=== PATIENT | female | born 1940 | race Caucasian/White ===

== ENCOUNTER 2017-05-10 00:20 | Emergency (ER) | payer MEDICARE, OTHER ==
[2017-05-10] MEDS ORDERED: Diltiazem 25 MG/5 ML SDV IVPUSH ONE (00:32)
[2017-05-10] MEDS ORDERED: Diltiazem 100 MG AdvVial ONE (00:45)
[2017-05-10] MEDS ORDERED: Diltiazem 100 MG in Sodium Chloride 0.9% 100 ML IV SCH (00:45)
--- NOTE | 2017-05-10 01:14 | EDM.PDOC ---
[id number]: Chest Pain Time Seen by Provider: 05/10/17 00:27 Source of Information: Reports: Patient, Retirement Records History Limitations: Reports: No Limitations - History of Present Illness INITIAL COMMENTS - FREE TEXT/NARRATIVE: Patient is brought here with complaints of shortness of breath. She is found to be in atrial flutter. Chronic shortness of breath due to COPD. On 2L of oxygen normally. She has history of DM II, hemorrhagic thrombocythemia, hypothyroidism, GERD, COPD. Heart rate in the 170's on arrival. She is not answering questions very accurately and laughing about it. Onset: Sudden Onset Date: 05/09/17 Onset Time: 12:00 Duration: Getting Worse Location: Reports: Chest Severity: Moderate Worsens with: Reports: Movement Associated Symptoms: Reports: Cough Chest Pain Score (Numeric/FACES): 5 - Related Data Allergies Allergy/AdvReac Type Severity Reaction Status Date / Time No Known Allergies Allergy Verified 05/10/17 01:13 ED ROS GENERAL - Review of Systems Review Of Systems: See Below Constitutional: Reports: No Symptoms HEENT: Reports: No Symptoms Respiratory: Reports: Shortness of Breath Cardiovascular: Reports: No Symptoms Endocrine: Reports: No Symptoms GI/Abdominal: Reports: No Symptoms : Reports: No Symptoms Musculoskeletal: Reports: No Symptoms Skin: Reports: No Symptoms Neurological: Reports: No Symptoms Psychiatric: Reports: No Symptoms Hematologic/Lymphatic: Reports: No Symptoms Immunologic: Reports: No Symptoms ED EXAM, GENERAL - Physical Exam Exam: See Below Exam Limited By: No Limitations General Appearance: Alert, WD/WN, Mild Distress Eye Exam: Bilateral Eye: EOMI, PERRL Ears: Normal TMs Head: Atraumatic, Normocephalic Neck: Normal Inspection, Supple, Non-Tender, Full Range of Motion Respiratory/Chest: No Respiratory Distress, No Accessory Muscle Use, Chest Non- Tender, Crackles Cardiovascular: Other (atrial flutter) GI/Abdominal: Normal Bowel Sounds, Soft, Non-Tender Extremities: Normal Inspection, Normal Range of Motion, Non-Tender, No Pedal Edema, Normal Capillary Refill Neurological: Alert, Oriented, CN II-XII Intact, Normal Cognition, Normal Gait, Normal Reflexes, No Motor/Sensory Deficits Psychiatric: Normal Affect, Normal Mood Skin Exam: Warm, Dry, Intact Lymphatic: No Adenopathy Course - Vital Signs Text/Narrative:: Report given to Dr. Woods; hospitalist at [facility]. Last Recorded V/S: Last Vital Signs Temp 37.1 C 05/10/17 00:21 Pulse 167 H 05/10/17 00:44 Resp 22 H 05/10/17 00:21 BP 126/72 05/10/17 00:44 Pulse Ox 96 05/10/17 00:21 - Orders/Labs/Meds Orders: Active Orders 24 hr Category Date Time Status EKG Documentation Completion [RC] ROUTINE Care 05/10/17 00:28 Active Chest 1V Frontal [CR] Stat Exams 05/10/17 00:28 Taken Amiodarone In Dextrose,Iso-Osm [Nexterone in Dextrose Med 05/10/17 02:00 Active 360 MG/200 ML] 360 mg in 200 ml IV ASDIRECTED Sodium Chloride 0.9% [Saline Flush] Med 05/10/17 01:25 Active 10 ml FLUSH ASDIRECTED PRN Saline Lock Insert [OM.PC] Routine Oth 05/10/17 01:25 Ordered Medication Orders Amiodarone HCl/Dextrose (Nexterone In Dextrose 360 Mg/200 Ml) 360 mg in 200 mls @ 33.333 mls/hr IV ASDIRECTED LATRICE Last Admin: 05/10/17 02:05 Dose: 33.333 mls/hr Sodium Chloride (Saline Flush) 10 ml FLUSH ASDIRECTED PRN PRN Reason: Keep Vein Open Labs: Laboratory Tests 05/10/17 05/10/17 05/10/17 Range/Units 00:52 00:52 00:52 WBC 5.7 (4.0-10.0) x10^3/uL RBC 2.78 L (4.00-5.50) x10^6/uL Hgb 10.0 L (12.0-16.0) g/dL Hct 30.5 L (33.0-47.0) % MCV 109.7 H (78.0-93.0) fL MCH 36.0 H (26.0-32.0) pg MCHC 32.8 (32.0-36.0) g/dL RDW Coeff of Jeaneth 21.4 H (10.0-15.0) % Plt Count 438 H (130-400) x10^3/uL Neut % (Auto) 81.3 H (50.0-80.0) % Lymph % (Auto) 11.2 L (25.0-50.0) % [place] % (Auto) 6.3 (2.0-11.0) % Eos % (Auto) 0.7 (0.0-4.0) % Baso % (Auto) 0.5 (0.2-1.2) % PT 11.3 (9.8-11.8) SEC INR 1.1 L (2.0-3.5) D-Dimer, Quantitative 0.54 (<=0.58) mg/LFEU Sodium 142 (136-145) mmol/L Potassium 4.4 (3.5-5.1) mmol/L Chloride 109 H (98-107) mmol/L Carbon Dioxide 23 (21-32) mmol/L BUN 35 H (7-18) mg/dL Creatinine 1.1 H (0.55-1.02) mg/dL Est Cr Clr Drug Dosing TNP Estimated GFR (MDRD) 48 Glucose 155 H (74-106) mg/dL Calcium 9.7 (8.5-10.1) mg/dL Corrected Calcium 10.18 H (8.5-10.1) mg/dL Total Bilirubin 0.4 (0.2-1.0) mg/dL AST 15 (15-37) U/L ALT 30 (14-59) U/L Alkaline Phosphatase 68 (46-116) U/L Creatine Kinase 34 (26-192) U/L Creatine Kinase Index TNP CK-MB (CK-2) TNP POC Troponin I (0.00-0.08) ng/mL B-Natriuretic Peptide 5121 H (<=450) pg/mL Total Protein 6.4 (6.4-8.2) g/dL Albumin 3.4 (3.4-5.0) g/dL Globulin 3.0 Albumin/Globulin Ratio 1.13 TSH, Ultra Sensitive 0.119 L (0.358-3.74) uIU/mL 05/10/17 Range/Units 00:56 WBC (4.0-10.0) x10^3/uL RBC (4.00-5.50) x10^6/uL Hgb (12.0-16.0) g/dL Hct (33.0-47.0) % MCV (78.0-93.0) fL MCH (26.0-32.0) pg MCHC (32.0-36.0) g/dL RDW Coeff of Jeaneth (10.0-15.0) % Plt Count (130-400) x10^3/uL Neut % (Auto) (50.0-80.0) % Lymph % (Auto) (25.0-50.0) % [place] % (Auto) (2.0-11.0) % Eos % (Auto) (0.0-4.0) % Baso % (Auto) (0.2-1.2) % PT (9.8-11.8) SEC INR (2.0-3.5) D-Dimer, Quantitative (<=0.58) mg/LFEU Sodium (136-145) mmol/L Potassium (3.5-5.1) mmol/L Chloride (98-107) mmol/L Carbon Dioxide (21-32) mmol/L BUN (7-18) mg/dL Creatinine (0.55-1.02) mg/dL Est Cr Clr Drug Dosing Estimated GFR (MDRD) Glucose (74-106) mg/dL Calcium (8.5-10.1) mg/dL Corrected Calcium (8.5-10.1) mg/dL Total Bilirubin (0.2-1.0) mg/dL AST (15-37) U/L ALT (14-59) U/L Alkaline Phosphatase (46-116) U/L Creatine Kinase (26-192) U/L Creatine Kinase Index CK-MB (CK-2) POC Troponin I 0.03 (0.00-0.08) ng/mL B-Natriuretic Peptide (<=450) pg/mL Total Protein (6.4-8.2) g/dL Albumin (3.4-5.0) g/dL Globulin Albumin/Globulin Ratio TSH, Ultra Sensitive (0.358-3.74) uIU/mL Meds: Medications Generic Name Dose Route Start Last Admin Trade Name Freq PRN Reason Stop Dose Admin Amiodarone HCl/Dextrose 360 mg in 200 mls @ 33.333 mls/hr 05/10/17 02:00 02:05 Nexterone In Dextrose 360 Mg/200 Ml IV 33.333 mls/hr ASDIRECTED LATRICE Administration Sodium Chloride 10 ml 05/10/17 01:25 Saline Flush FLUSH ASDIRECTED PRN Keep Vein Open Discontinued Medications Generic Name Dose Route Start Last Admin Trade Name Nerissa PRN Reason Stop Dose Admin Diltiazem HCl 20 mg 05/10/17 00:32 05/10/17 00:44 Diltiazem IVPUSH 05/10/17 00:33 20 mg ONETIME ONE Administration Diltiazem HCl Confirm 05/10/17 00:45 05/10/17 02:02 Cardizem Administered 05/10/17 00:46 Not Given Dose 100 mg .ROUTE .STK-MED ONE Glucagon Confirm 05/10/17 03:02 Glucagen Administered 05/10/17 03:03 Dose 2 mg .ROUTE .STK-MED ONE Diltiazem HCl 100 mg/ Sodium 100 mls @ 5 mls/hr 05/10/17 00:45 05/10/17 00:44 Chloride IV 5 mg/hr TITRATE LATRICE 5 mls/hr Protocol Administration 5 MG/HR Labetalol HCl 10 mg 05/10/17 01:24 05/10/17 01:34 Normodyne IVPUSH 05/10/17 01:25 10 mg NOW ONE Administration Protocol Methylprednisolone Sodium Succinate 125 mg 05/10/17 01:45 05/10/17 01:49 Solu-Medrol IVPUSH 05/10/17 01:46 125 mg ONETIME ONE Administration - Re-Assessments/Exams Free Text/Narrative Re-Assessment/Exam: 05/10/17 02:30 On initial arrival, patient given 20 mg cardizem bolus and started on a cardizem gtt at 5 mg/hour. This did not adequately reduce her heart rate. While her blood pressure was 110's systolic, I did order 5 mg of IV labetolol, which did not succeed in rate control, but did drop systolic blood pressure to the 70's. Cardizem gtt stopped, IV amiodarone initiated. Last blood pressure recorded was 93 systolic. Departure - Departure Time of Disposition: 03:12 Disposition: DC/Tfer to Acute Hospital 02 Reason for Transfer *Q: Other (additional testing needed for causes of a-flutter ) Condition: Good Clinical Impression: Atrial flutter with rapid ventricular response, Heart failure Referrals: Pavithra Adams DO [Primary Care Provider] - Forms: ED Department Discharge, Interfacility Transfer [place] - My Orders Last 24 Hours: My Active Orders 05/10/17 00:28 EKG Documentation Completion [RC] ROUTINE Chest 1V Frontal [CR] Stat 05/10/17 01:25 Sodium Chloride 0.9% [Saline Flush] 10 ml FLUSH ASDIRECTED PRN Saline Lock Insert [OM.PC] Routine 05/10/17 02:00 Amiodarone In Dextrose,Iso-Osm [Nexterone in Dextrose 360 MG/200 ML] 360 mg in 200 ml IV ASDIRECTED - Assessment/Plan Last 24 Hours: My Active Orders 05/10/17 00:28 EKG Documentation Completion [RC] ROUTINE Chest 1V Frontal [CR] Stat 05/10/17 01:25 Sodium Chloride 0.9% [Saline Flush] 10 ml FLUSH ASDIRECTED PRN Saline Lock Insert [OM.PC] Routine 05/10/17 02:00 Amiodarone In Dextrose,Iso-Osm [Nexterone in Dextrose 360 MG/200 ML] 360 mg in 200 ml IV ASDIRECTED
[2017-05-10] MEDS ORDERED: Labetalol 20 MG/4 ML Syringe IVPUSH ONE (01:24)
[2017-05-10] MEDS ORDERED: Sodium Chloride 0.9% 10 ML Syringe FLUSH PRN (01:25)
[2017-05-10 01:35] LABS: CHLORIDE,CL 109 mmol/L (98-107); SODIUM,NA 142 mmol/L (136-145)
[2017-05-10] MEDS ORDERED: methylPREDNISolone Sodium Succinate 125 MG/2 ML SDV IVPUSH ONE (01:45)
[2017-05-10] MEDS ORDERED: Glucagon,Human Recombinant 1 MG Vial ONE (03:02)
[2017-05-10 08:12] VITALS: BP 87/54
== END 2017-05-10 03:12 | disposition short-term general hospital (02) ==
LOC: VM.ED 00:20
DX: I48.92 Unspecified atrial flutter (principal); I50.9 Heart failure, unspecified; J44.9 Chronic obstructive pulmonary disease, unspecified; E11.9 Type 2 diabetes mellitus without complications; E03.9 Hypothyroidism, unspecified; K21.9 Gastro-esophageal reflux disease without esophagitis; D69.6 Thrombocytopenia, unspecified
CPT/HCPCS: 36415; 71010; 80053; 82550; 83880; 84443; 84484; 85025; 85379; 85610; 93005; 96365; 96375; 96376; 99285; J0282; J2930; J7050; 99284-GF; A9270-GY; J3490

== ENCOUNTER 2017-07-20 20:18 | Emergency (ER) | payer MEDICARE, OTHER ==
[2017-07-20] MEDS ORDERED: Morphine 2 MG/ML Syringe IVPUSH ONE ×2 (20:29→23:55)
[2017-07-20] MEDS ORDERED: Ondansetron 4 MG/2 ML SDV IVPUSH ONE (20:29)
[2017-07-20] MEDS ORDERED: Sodium Chloride 0.9% 10 ML Syringe FLUSH PRN (20:29)
[2017-07-20] MEDS ORDERED: Sodium Chloride 0.9% 1,000 ML IV SCH (20:30)
--- NOTE | 2017-07-20 20:39 | EDM.PDOC ---
ED HPI GENERAL MEDICAL PROBLEM - General Chief Complaint: Abdominal Pain Stated Complaint: ABDOMINAL PAIN Time Seen by Provider: 07/20/17 20:28 Source of Information: Reports: Patient History Limitations: Reports: No Limitations - History of Present Illness INITIAL COMMENTS - FREE TEXT/NARRATIVE: Patient is brought into the emergency room this evening by ambulance from the [facility]. She has complaints of right lower abdominal pain and pressure. She states this started in the evening after dinner. She denies fever , chest pain, shortness of breath, she does state that she does have a headache , she denies blood in her urine or stools. She rates her pain a 15/10. She has no nausea or vomiting. She has been incontinent of stool on her arrival. Onset: Today, Sudden Duration: Getting Worse Location: Reports: Abdomen Severity: Moderate Worsens with: Reports: Movement Associated Symptoms: Reports: No Other Symptoms - Related Data Allergies Allergy/AdvReac Type Severity Reaction Status Date / Time No Known Allergies Allergy Verified 05/10/17 01:13 Past Medical History Cardiovascular History: Reports: High Cholesterol, Hypertension, Other (See Below) Other Cardiovascular History: Heart disease (unspecified) Respiratory History: Reports: COPD Gastrointestinal History: Reports: GERD Musculoskeletal History: Reports: Other (See Below) Other Musculoskeletal History: Muscle weakness Endocrine/Metabolic History: Reports: Diabetes, Type II, Hypothyroidism Social & Family History - Tobacco Use Smoking Status *Q: Current Status Unknown - Recreational Drug Use Recreational Drug Use: No ED ROS GENERAL - Review of Systems Review Of Systems: See Below Constitutional: Reports: Diaphoresis HEENT: Reports: No Symptoms Respiratory: Reports: Shortness of Breath (chronic) Cardiovascular: Reports: No Symptoms Endocrine: Reports: No Symptoms GI/Abdominal: Reports: Abdominal Pain, Constipation, Nausea, Vomiting Musculoskeletal: Reports: No Symptoms Skin: Reports: No Symptoms Neurological: Reports: No Symptoms Psychiatric: Reports: No Symptoms Hematologic/Lymphatic: Reports: No Symptoms Immunologic: Reports: No Symptoms ED EXAM, GI/ABD - Physical Exam Exam: See Below General Appearance: Alert, WD/WN, Moderate Distress Eyes: Bilateral: EOMI Ears: Normal TMs Throat/Mouth: Normal Inspection, Normal Oropharynx Head: Atraumatic, Normocephalic Neck: Normal Inspection, Supple, Non-Tender Respiratory/Chest: No Respiratory Distress, No Accessory Muscle Use, Crackles Cardiovascular: No Murmur, Irregularly Irregular GI/Abdominal Exam: Distended, Guarding, Rigid, Tender, Abnormal Bowel Sounds Extremities: Normal Inspection, Normal Range of Motion, Normal Capillary Refill , Pedal Edema Neurological: Alert, CN II-XII Intact, Normal Gait, Normal Reflexes, No Motor/ Sensory Deficits, Other (Patient does appear to be oriented, is answering questions correctly but does need several prompts to do so) Skin Exam: Diaphoretic Lymphatic: No Adenopathy Course - Orders/Labs/Meds Orders: Active Orders 24 hr Category Date Time Status EKG Documentation Completion [RC] ROUTINE Care 07/20/17 20:29 Ordered Abdomen Pelvis w Cont [CT] Stat Exams 07/20/17 20:29 Taken URINALYSIS W/MICROSCOPIC [UA W/MICROSCOPIC] [URIN] Stat Lab 07/20/17 20:31 Uncollected Sodium Chloride 0.9% [Normal Saline] 1,000 ml Med 07/20/17 20:30 Active IV ASDIRECTED Sodium Chloride 0.9% [Saline Flush] Med 07/20/17 20:29 Active 10 ml FLUSH ASDIRECTED PRN Saline Lock Insert [OM.PC] Routine Oth 07/20/17 20:29 Ordered Medication Orders Sodium Chloride (Normal Saline) 1,000 mls @ 125 mls/hr IV ASDIRECTED LATRICE Last Admin: 07/20/17 20:42 Dose: 125 mls/hr Sodium Chloride (Saline Flush) 10 ml FLUSH ASDIRECTED PRN PRN Reason: Keep Vein Open Labs: Laboratory Tests 07/20/17 07/20/17 07/20/17 Range/Units 21:01 21:01 21:01 WBC 5.2 (4.0-10.0) x10^3/uL RBC 2.69 L (4.00-5.50) x10^6/uL Hgb 9.2 L (12.0-16.0) g/dL Hct 29.0 L (33.0-47.0) % MCV 107.8 H (78.0-93.0) fL MCH 34.2 H (26.0-32.0) pg MCHC 31.7 L (32.0-36.0) g/dL RDW Coeff of Jeaneth 14.9 (10.0-15.0) % Plt Count 331 D (130-400) x10^3/uL Add Manual Diff Yes Neutrophils % (Manual) 94 H (50-80) % Lymphocytes % (Manual) 3 L (25-50) % Monocytes % (Manual) 3 (2-11) % Platelet Estimate Adequate Polychromasia Rare Anisocytosis 2+ moderate H Macrocytosis 3+ marked H Spherocytes Rare Target Cells 1+ slight H Tear Drop Cells 1+ slight H Ovalocytes 2+ moderate H Schistocytes 2+ moderate H PT (9.8-11.8) SEC INR (2.0-3.5) Sodium 138 (136-145) mmol/L Potassium 4.3 (3.5-5.1) mmol/L Chloride 103 (98-107) mmol/L Carbon Dioxide 20 L (21-32) mmol/L BUN 34 H (7-18) mg/dL Creatinine 1.3 H (0.55-1.02) mg/dL Est Cr Clr Drug Dosing TNP Estimated GFR (MDRD) 40 Glucose 260 H (74-106) mg/dL Lactic Acid 3.6 H (0.4-2.0) mmol/L Calcium 10.0 (8.5-10.1) mg/dL Corrected Calcium 10.64 H (8.5-10.1) mg/dL Total Bilirubin 0.5 (0.2-1.0) mg/dL AST 16 (15-37) U/L ALT 29 (14-59) U/L Alkaline Phosphatase 68 (46-116) U/L Creatine Kinase 140 (26-192) U/L Creatine Kinase Index 2.9 (0.0-4.0) % CK-MB (CK-2) 4.1 H (0.0-3.6) ng/mL Troponin I < 0.017 (<=0.056) ng/mL C-Reactive Protein 25.2 H (<=0.9) mg/dL Total Protein 6.5 (6.4-8.2) g/dL Albumin 3.2 L (3.4-5.0) g/dL Globulin 3.3 Albumin/Globulin Ratio 0.97 Amylase 12 L (25-115) U/L Lipase 66 L (73-393) U/L 07/20/17 Range/Units 21:01 WBC (4.0-10.0) x10^3/uL RBC (4.00-5.50) x10^6/uL Hgb (12.0-16.0) g/dL Hct (33.0-47.0) % MCV (78.0-93.0) fL MCH (26.0-32.0) pg MCHC (32.0-36.0) g/dL RDW Coeff of Jeaneth (10.0-15.0) % Plt Count (130-400) x10^3/uL Add Manual Diff Neutrophils % (Manual) (50-80) % Lymphocytes % (Manual) (25-50) % Monocytes % (Manual) (2-11) % Platelet Estimate Polychromasia Anisocytosis Macrocytosis Spherocytes Target Cells Tear Drop Cells Ovalocytes Schistocytes PT 26.5 H D (9.8-11.8) SEC INR 2.5 (2.0-3.5) Sodium (136-145) mmol/L Potassium (3.5-5.1) mmol/L Chloride (98-107) mmol/L Carbon Dioxide (21-32) mmol/L BUN (7-18) mg/dL Creatinine (0.55-1.02) mg/dL Est Cr Clr Drug Dosing Estimated GFR (MDRD) Glucose (74-106) mg/dL Lactic Acid (0.4-2.0) mmol/L Calcium (8.5-10.1) mg/dL Corrected Calcium (8.5-10.1) mg/dL Total Bilirubin (0.2-1.0) mg/dL AST (15-37) U/L ALT (14-59) U/L Alkaline Phosphatase (46-116) U/L Creatine Kinase (26-192) U/L Creatine Kinase Index (0.0-4.0) % CK-MB (CK-2) (0.0-3.6) ng/mL Troponin I (<=0.056) ng/mL C-Reactive Protein (<=0.9) mg/dL Total Protein (6.4-8.2) g/dL Albumin (3.4-5.0) g/dL Globulin Albumin/Globulin Ratio Amylase (25-115) U/L Lipase (73-393) U/L Meds: Medications Generic Name Dose Route Start Last Admin Trade Name Freq PRN Reason Stop Dose Admin Sodium Chloride 1,000 mls @ 125 mls/hr 07/20/17 20:30 07/20/17 20:42 Normal Saline IV 125 mls/hr ASDIRECTED LATRICE Administration Sodium Chloride 10 ml 07/20/17 20:29 Saline Flush FLUSH ASDIRECTED PRN Keep Vein Open Discontinued Medications Generic Name Dose Route Start Last Admin Trade Name Freq PRN Reason Stop Dose Admin Acetaminophen 1,000 mg 07/21/17 00:20 Tylenol Extra Strength PO 07/21/17 00:21 ONETIME ONE Azithromycin 500 mg 07/20/17 23:55 Zithromax PO 07/20/17 23:56 ONETIME ONE Ceftriaxone Sodium 1 gm 07/20/17 23:55 Rocephin IVPUSH 07/20/17 23:56 ONETIME ONE Sodium Chloride 100 mls @ 3 mls/sec 07/20/17 22:44 07/20/17 22:45 Normal Saline IV 07/20/17 22:45 3 mls/sec ONETIME ONE Administration Iopamidol 100 ml 07/20/17 22:44 07/20/17 22:44 Isovue-300 (61%) IVPUSH 07/20/17 22:45 100 ml ONETIME ONE Administration Morphine Sulfate 2 mg 07/20/17 20:29 07/20/17 20:47 Morphine IVPUSH 07/20/17 20:30 2 mg ONETIME ONE Administration Morphine Sulfate 2 mg 07/20/17 23:55 Morphine IVPUSH 07/20/17 23:56 ONETIME ONE Ondansetron HCl 4 mg 07/20/17 20:29 07/20/17 20:42 Zofran IVPUSH 07/20/17 20:30 4 mg ONETIME ONE Administration Departure - Departure Time of Disposition: 00:38 Disposition: DC/Tfer to Acute Hospital 02 Condition: Good Clinical Impression: Right lower lobe pneumonia, Bowel perforation - Discharge Information Referrals: Pavithra Adams, DO [Primary Care Provider] - Forms: ED Department Discharge, Interfacility Transfer [facility] ED Communication - ED Communication Date/Time Date: 07/20/17 Time Called: 23:30 - Discussed Case With (1) Discussed Case With (1): Admitting Provider, Inpatient Bulb Sorter (Discussed case with Dr. Collins, hospitalist, and Dr. Petersen general surgery at [facility]. Dr. Collins to assume care with Dr. Petersen in consultation) - Problem List & Annotations (1) Bowel perforation SNOMED Code(s): 40355931 Code(s): K63.1 - PERFORATION OF INTESTINE (NONTRAUMATIC) Status: Acute Priority: Medium Current Visit: Yes (2) Right lower lobe pneumonia SNOMED Code(s): 595007169 Code(s): J18.1 - LOBAR PNEUMONIA, UNSPECIFIED ORGANISM Status: Acute Current Visit: Yes Qualifiers: Pneumonia type: due to unspecified organism Qualified Code(s): J18.1 - Lobar pneumonia, unspecified organism - Problem List Review Problem List Initiated/Reviewed/Updated: Yes - My Orders Last 24 Hours: My Active Orders 07/20/17 20:29 EKG Documentation Completion [RC] ROUTINE Abdomen Pelvis w Cont [CT] Stat Sodium Chloride 0.9% [Saline Flush] 10 ml FLUSH ASDIRECTED PRN Saline Lock Insert [OM.PC] Routine 07/20/17 20:30 Sodium Chloride 0.9% [Normal Saline] 1,000 ml IV ASDIRECTED 07/20/17 20:31 URINALYSIS W/MICROSCOPIC [UA W/MICROSCOPIC] [URIN] Stat - Assessment/Plan Last 24 Hours: My Active Orders 07/20/17 20:29 EKG Documentation Completion [RC] ROUTINE Abdomen Pelvis w Cont [CT] Stat Sodium Chloride 0.9% [Saline Flush] 10 ml FLUSH ASDIRECTED PRN Saline Lock Insert [OM.PC] Routine 07/20/17 20:30 Sodium Chloride 0.9% [Normal Saline] 1,000 ml IV ASDIRECTED 07/20/17 20:31 URINALYSIS W/MICROSCOPIC [UA W/MICROSCOPIC] [URIN] Stat
[2017-07-20 21:43] LABS: CHLORIDE,CL 103 mmol/L (98-107); SODIUM,NA 138 mmol/L (136-145)
[2017-07-20] MEDS ORDERED: Sodium Chloride 0.9% 100 ML IV ONE (22:44)
[2017-07-20] MEDS ORDERED: Iopamidol 612 MG/ML 100 ML Bottle IVPUSH ONE (22:44)
[2017-07-20] MEDS ORDERED: Azithromycin 250 MG Tab PO ONE (23:55)
[2017-07-20] MEDS ORDERED: cefTRIAXone 1 GM Vial IVPUSH ONE (23:55)
[2017-07-21] MEDS ORDERED: Acetaminophen 500 MG Tab PO ONE (00:20)
[2017-07-21 03:14] VITALS: BP 111/86
== END 2017-07-21 00:53 | disposition short-term general hospital (02) ==
LOC: VM.ED 20:18 → SUPCPDRO 20:18 → VM.ED 07-21 00:53
DX: K63.1 Perforation of intestine (nontraumatic) (principal); J18.9 Pneumonia, unspecified organism; E78.00 Pure hypercholesterolemia, unspecified; I10 Essential (primary) hypertension; J44.9 Chronic obstructive pulmonary disease, unspecified; K21.9 Gastro-esophageal reflux disease without esophagitis
CPT/HCPCS: 36415; 74177; 80053; 82150; 82550; 82553; 83605; 83690; 84484; 85025; 85610; 86140; 96365; 96366; 96375; 96376; 99285; A9270; J0696; J2270; J2405; J7030; J7050; Q9967; 93005